=== PATIENT | female | born 1990 | race Caucasian/White ===

== ENCOUNTER 2016-12-14 21:44 | Observation (INO) | payer BC ==
[~2016-12-14 21:44] MED LIST: PRENATAL-U CAPS1 CAP PO
[2016-12-14 22:55] LABS: BASO % 0.2 % (0-2); EOS % 0.7 % (0-7); EOSINOPHIL ABSOLUTE COUNT 0.1 tho/cmm (0.0-0.7); HCT-HEMATOCRIT 38.3 % (34.0-49.0); IMMATURE GRANULOCYTES ABSOLUTE 0.02 tho/cmm (0-0.03); IMMATURE GRANULOCYTES PERCENT 0.2 % (0-0.3); LYMPH % 39.3 % (20-45); LYMPH ABSOLUTE COUNT 3.7 tho/cmm (0.8-4.5); MCH (MEAN CORPUSCULAR HGB) 28.3 pg (28.0-32.0); MCHC MEAN CORPUSCULAR HGB CONC 33.9 % (32.0-36.0); MCV (MEAN CELL VOLUME) 83.3 fl (82.0-96.0); MEAN PLATELET VOLUME 12.4 cmc (9.4-12.4); MONO % 6.1 % (0-12); MONOCYTE ABSOLUTE COUNT 0.6 tho/cmm (0.0-1.2); NEUTROPHIL ABSOLUTE COUNT 5.1 tho/cmm (1.6-8.0); NEUTROPHIL-AUTOMATED 5.1 tho/cmm (1.6-8.0); NEUTROPHILS % 53.5 % (40-80); PLATELET COUNT 178 tho/cmm (150-450); WHITE BLOOD COUNT 9.5 tho/cmm (4.0-10.0)
[2016-12-15 09:33] LABS: HGB-HEMOGLOBIN 9.9 gm/dl (12.0-15.5); RED CELL DISTRIBUTION WIDTH 14.3 % (12.4-16.4)
[2016-12-15] MEDS ORDERED: NO HOME MEDICATION XX (11:04)
== END 2016-12-15 11:18 ==
LOC: EDMED 21:44 → EMR2 12-15 00:49 → CAR1 12-15 01:39
PROVIDERS: Emergency Medicine; ADMIT Obstetrics & Gynecology
DX: O03.9 Complete or unspecified spontaneous abortion without complication (principal); Z88.8 Allergy status to other drugs, medicaments and biological substances; Z88.1 Allergy status to other antibiotic agents
CPT/HCPCS: G0378; J2270; J2405; J7030